=== PATIENT | male | born 1960 | race Caucasian/White ===

== ENCOUNTER 2019-08-06 10:19 | Emergency (ER) | payer MEDICAID ==
[~2019-08-06] VITALS: Ht 165.1 cm; Wt 68.0 kg
[2019-08-06 10:21] VITALS: BP 161/108
--- NOTE | 2019-08-06 10:23 | NUR ---
PT C/O INTERMITTENT THROBBING/SHARP LEFT UPPER TOOTH PAIN X YESTERDAY. PT'S BP 177/110 MMHG, HR 107 UPON ASSESSMENT. DENIES DIZZINESS, TORRES, BLURRY VISION/DOUBLE VISION, FEVER, AND NO TOOTHACHE AT THIS TIME. PT STATES HE DOES NOT WANT TO TAKE ANY MEDICATION FOR HIS HIGH BLOOD PRESSURE. DR. ROB NOTIFIED REGARDING PT'S BP AND TOOTHACHE. PATIENT STATES PAIN OF 0/10 AT THIS TIME; VSS; PATIENT POSITIONED FOR COMFORT; HOB ELEVATED; BEDRAILS UP X1; BED DOWN. Addendum: 08/06/19 at 1053 by [facility] ASSESSMENT MADE IN THE TRIAGE ROOM AND BED 6.
--- NOTE | 2019-08-06 10:28 | NUR ---
PATIENT AMBULATED TO BED 6.
[2019-08-06] MEDS: PENICILLIN V POTASSIUM 250 MG TAB PO ONE (10:46)
[2019-08-06 10:53] VITALS: BP 173/106
--- NOTE | 2019-08-06 10:53 | NUR ---
Patient discharged with v/s stable. Written and verbal after care instructions given and explained. Patient alert, oriented and verbalized understanding of instructions. Ambulatory with steady gait. All questions addressed prior to discharge. ID band removed. Patient advised to follow up with PMD. Rx of Penicillin VK and Ibuprofen given. Patient educated on indication of medication including possible reaction and side effects. Opportunity to ask questions provided and answered.
== END 2019-08-06 10:53 | disposition home or self-care (01) ==
LOC: MED 10:19
DX: K04.7 Periapical abscess without sinus (principal); I10 Essential (primary) hypertension
CPT/HCPCS: 99283

== ENCOUNTER 2020-04-04 11:12 | Emergency (ER) | payer MEDICAID ==
[~2020-04-04] VITALS: Ht 165.1 cm; Wt 68.0 kg
[2020-04-04 11:25] VITALS: BP 132/92
--- NOTE | 2020-04-04 12:50 | NUR ---
C/O SOB X2 WEEKS WORSENING X 3 DAYS. PT STATES COVID + 2 WEEKS AGO. HX HTN.
--- NOTE | 2020-04-04 12:52 | NUR ---
COVID CAROLINE SWAB COLLECTED.
[2020-04-04 13:02] LABS: BASOPHILS # (AUTO) 0.1 K/uL (0.00-0.22); BASOPHILS % (AUTO) 0.8 % (0.0-2.0); EOSINOPHILS % (AUTO) 0.4 % (0.0-4.0); HEMATOCRIT 38.3 % (36-52); HEMOGLOBIN 12.9 g/dL (12.0-18.0); LYMPHOCYTES # (AUTO) 0.9 K/uL (2.0-11.5); LYMPHOCYTES % (AUTO) 9.3 % (20.5-51.1); MEAN CORPUSCULAR HEMOGLOBIN 30 pg (27-31); MEAN CORPUSCULAR HGB CONC 34 g/dL (33-37); MEAN CORPUSCULAR VOLUME 88.9 fL (80-94); MONOCYTES # (AUTO) 0.9 K/uL (0.8-1.0); MONOCYTES % (AUTO) 9.6 % (1.7-9.3); NEUTROPHILS # (AUTO) 7.8 K/uL (1.8-7.7); NEUTROPHILS % (AUTO) 79.9 % (42.2-75.2); PLATELET COUNT (AUTO) 672 K/uL (140-450); RED BLOOD CELL COUNT(AUTO) 4.31 MIL/uL (4.20-6.10); RED CELL DISTRIBUTION WIDTH 13.4 % (11.6-13.7); WHITE BLOOD COUNT (AUTO) 9.8 K/uL (4.8-10.8)
[2020-04-04 13:02] LABS: BILIRUBIN,URINE 1+ (NEGATIVE); BLOOD, URINE NEGATIVE (NEGATIVE); COLOR,URINE ORANGE (YELLOW); LEUKOCYTE ESTERASE ,URINE NEGATIVE (NEGATIVE); NITRITE, URINE NEGATIVE (NEGATIVE); UGLUCOSE NEGATIVE (NEGATIVE)
--- NOTE | 2020-04-04 13:03 | NUR ---
2LPM O2 CANNULA. O2 SAT 91% AT THIS TIME.
[2020-04-04 13:15] LABS: APPEARANCE,URINE SLIGHTLY HAZY (CLEAR)
[2020-04-04 13:16] LABS: RBC,URINE 0-5 /HPF (0-5); WBC,URINE 0-5 /HPF (0-5)
[2020-04-04 13:38] LABS: ALBUMIN 3.2 g/dL (3.4-5.0); ANION GAP 11.6 (8-16); CARBON DIOXIDE 27.9 mmol/L (21-32); CREATININE 1.1 mg/dL (0.6-1.3); POTASSIUM 3.5 mmol/L (3.5-5.1); TOTAL BILIRUBIN 0.5 mg/dL (0.0-1.0)
[2020-04-04 13:49] LABS: C-REACTIVE PROTEIN QUANT 4.8 mg/dL (0.0-0.9)
[2020-04-04 14:02] LABS: LACTATE DEHYDROGENASE 380 U/L (85-227)
[2020-04-04 15:07] VITALS: BP 125/90
--- NOTE | 2020-04-04 15:07 | NUR ---
Patient discharged with acceptable O2 sat per Dr. Chandler. Written and verbal after care instructions given and explained. Patient verbalized understanding. Ambulatory with steady gait. All questions addressed prior to discharge. Advised to follow up with PMD.
== END 2020-04-04 15:07 | disposition home or self-care (01) ==
LOC: MED 11:12
DX: R06.02 Shortness of breath (principal); Z20.828 Contact with and (suspected) exposure to other viral communicable diseases; I10 Essential (primary) hypertension
CPT/HCPCS: 36415; 71045; 80053; 81001; 82550; 82728; 83605; 83615; 83880; 84484; 85025; 85379; 85384; 85610; 85730; 86140; 87040; 87086; 93005; 99285